=== PATIENT | male | born 1995 | race Caucasian/White ===

== ENCOUNTER 2022-06-28 10:39 | Emergency (ER) | payer MEDICAID ==
[~2022-06-28] VITALS: Ht 177.8 cm; Wt 99.8 kg
[2022-06-28] MEDS ORDERED: ALDACTONE25 MG PO (11:41)
[2022-06-28] MEDS ORDERED: ASPI81CH PO (11:41)
== END 2022-06-28 12:40 | disposition home or self-care (01) ==
LOC: ER 10:39
DX: L97.829 Non-pressure chronic ulcer of other part of left lower leg with unspecified severity (principal); Z79.82 Long term (current) use of aspirin; Z79.899 Other long term (current) drug therapy; Z95.1 Presence of aortocoronary bypass graft
CPT/HCPCS: 99282

== ENCOUNTER 2023-06-23 11:45 | Emergency (ER) | payer OTHER ==
[~2023-06-23] VITALS: Ht 177.8 cm; Wt 108.9 kg
[~2023-06-23 11:45] MED LIST: ALDACTONE25 MG PO; ASPI81CH PO
[2023-06-23 13:44] VITALS: BP 126/78
== END 2023-06-23 13:46 | disposition home or self-care (01) ==
LOC: ER 11:45
DX: L97.829 Non-pressure chronic ulcer of other part of left lower leg with unspecified severity (principal); Z79.899 Other long term (current) drug therapy; Z79.82 Long term (current) use of aspirin; Z95.1 Presence of aortocoronary bypass graft
CPT/HCPCS: 99282